=== PATIENT | male | born 1950 | race Caucasian/White ===

== ENCOUNTER → 2024-05-21 | Outpatient (CLI) | payer OTHER | END | disposition home or self-care (01) | LOC: RAD 14:15 | PROVIDERS: ATTEND Surgery | DX: K44.9 Diaphragmatic hernia without obstruction or gangrene (principal); K21.9 Gastro-esophageal reflux disease without esophagitis | CPT/HCPCS: 74220 ==

== ENCOUNTER 2024-09-09 05:47 | Observation (INO) | payer OTHER ==
[2024-09-03 11:48] LABS: BASOPHILS % (AUTO) 0.4 % (0-1); EOSINOPHILS # (AUTO) 0.1 X10'3 (0-0.9); EOSINOPHILS % (AUTO) 1.8 % (0-6); LYMPHOCYTES # (AUTO) 1.1 X10'3 (1.1-4.8); LYMPHOCYTES % (AUTO) 15.1 % (21-51); MEAN CORPUSCULAR HEMOGLOBIN 35.1 PG (27.0-31.0); MEAN CORPUSCULAR HGB CONC 34.9 g/dL (33.0-36.5); MEAN CORPUSCULAR VOLUME 100.6 FL (78-98); MEAN PLATELET VOLUME 9.2 FL (7.4-10.4); MONOCYTES # (AUTO) 0.9 X10'3 (0-0.9); MONOCYTES % (AUTO) 11.6 % (2-12); NEUTROPHILS # (AUTO) 5.3 X10'3 (1.8-7.7); NEUTROPHILS % (AUTO) 71.1 % (42-75); PRE OP HEMATOCRIT 41.5 % (42.0-52.0); PRE OP HEMOGLOBIN 14.5 g/dL (14.0-17.9); PRE OP PLATELET COUNT 132 X10'3 (140-440); PRE OP WHITE BLOOD COUNT 7.5 10'3 (4.8-10.8); RED BLOOD COUNT 4.13 X10'6 (4.70-6.10); RED CELL DISTRIBUTION WIDTH 12.9 % (11.5-14.5)
[2024-09-03 11:58] LABS: ALBUMIN 3.5 G/DL (3.4-5.0); ALKALINE PHOSPHATASE 136 IU/L (46-116); BLOOD UREA NITROGEN 15 MG/DL (7-18); BUN/CREATININE RATIO 12.2 (10.0-20.0); CALCIUM 8.9 MG/DL (8.5-10.1); CHLORIDE 107 MMOL/L (99-107); CREATININE 1.23 MG/DL (0.60-1.10); PRE OP ALT 31 U/L (30-65); PRE OP ANION GAP 8 (8-16); PRE OP AST 22 U/L (10-37); PRE OP BILIRUB, TOTAL 0.4 MG/DL (0.0-1.0); PRE OP GLUCOSE 101 MG/DL (70-104); PRE OP POTASSIUM 4.5 MMOL/L (3.4-5.1); PRE OP SODIUM 141 MMOL/L (135-145); TOTAL CARBON DIOXIDE 26.3 MMOL/L (24-32); TOTAL PROTEIN 6.9 G/DL (6.4-8.2); eGFR 57 ML/MIN
[2024-09-09] VITALS (45 sets, daily range): BP systolic 102–159; BP diastolic 68–104; PULSE 75–97; RESP 12–26; TEMP 97.4–98.3; O2SAT 91–99
[~2024-09-09] VITALS: Ht 174 cm; Wt 85.5 kg
[~2024-09-09 05:47] MED LIST: ASPI-1071 PO; ATOR40TA72 PO; COQ10; DICLOFENAC; FAMO10TA41 PO; GLUCOSAMINE/MSM; LORA10TA7 PO; MATURE MVI; PANT-47 PO; VITAMIN C; VITAMIN D; [UNRECOGNIZED DRUG - OTHER]
[2024-09-09] MEDS: famotidine 20mg tablet PO ONE (06:28)
[2024-09-09] MEDS: ringers solution, lacted 1,000 ML IV SCH ×2 (06:29→09:45)
[2024-09-09] MEDS: ceFAZolin 2gm in dextrose, iso 50 ML IV ONE (06:29)
[2024-09-09] MEDS ORDERED: LIDOcaine 1% (10mg/ml)w/preservative inj. 20ml MDV ONE ×2 (06:41→07:35)
[2024-09-09] MEDS ORDERED: BUPIVAcaine 2.5mg/ml inj 50ml vial (contains preservative) ONE (06:42)
[2024-09-09] MEDS ORDERED: fentaNYL /PF 50mcg/ml 5ml ampule ONE (07:51)
[2024-09-09] MEDS ORDERED: midazolam 1 mg/ML 2ml injection ONE (07:51)
[2024-09-09] MEDS ORDERED: sevoflurane 250ml liquid IH ONE (07:52)
[2024-09-09] MEDS ORDERED: LIDOcaine 2% (20mg/ml) 5ml vial ONE (08:13)
[2024-09-09] MEDS ORDERED: rocuronium 10mg/ml inj IV ONE (08:13)
[2024-09-09] MEDS ORDERED: propofol inj 20 ML IV ONE (08:13)
[2024-09-09] MEDS ORDERED: dexamethasone sod phosphate 4mg/ml inj. ONE (08:47)
[2024-09-09] MEDS ORDERED: ondansetron/PF 4mg/2ml inj ONE (08:47)
[2024-09-09] MEDS ORDERED: enalaprilat dihydrate 2.5mg/2ml vial IV PRN (09:45)
[2024-09-09] MEDS ORDERED: proCHLORperazine 10 MG/2 ml inj IV PRN (09:45)
[2024-09-09] MEDS ORDERED: morphine 4 MG/ML inj SYRINge IV PRN (09:45)
[2024-09-09] MEDS ORDERED: morphine 2 MG/ML inj. syringe IV PRN (09:45)
[2024-09-09] MEDS ORDERED: ondansetron/PF 4mg/2ml inj IV PRN ×2 (09:45→10:00)
[2024-09-09] MEDS ORDERED: labetalol 20mg/4ml (5mg/ml) syringe IV PRN (09:45)
[2024-09-09] MEDS ORDERED: meperidine/PF 25mg/ml syringe IV PRN ×2 (09:45)
[2024-09-09] MEDS: HYDROmorph/NS 0.2 mg/ml PCA 100 ML IV SCH (10:00)
[2024-09-09] MEDS ORDERED: naloxone 0.4 mg/ml inj IV PRN (10:00)
[2024-09-09] MEDS: meperidine/PF 25mg/ml syringe IV PRN (10:50)
[2024-09-09] MEDS ORDERED: albuterol 2.5 MG/3 ML nebule NEB SCH (11:00)
[2024-09-09] MEDS: normal saline 1000ml 1,000 ML IV SCH (19:00)
[2024-09-09] MEDS ORDERED: HYDROmorphone inj. 0.5 MG/0.5 ML DISP.SYRIN IV PRN (20:00)
[2024-09-09] MEDS: atorvastatin 20mg tablet PO SCH (20:34)
[2024-09-09] MEDS: potassium CL 20mEq in D5-1/2NS 1,000 ML IV SCH (20:34)
[2024-09-09] MEDS: oxyCODONE/APAP 5-325mg tablet PO PRN (20:35)
[2024-09-09] MEDS: heparin, porcine 5000 units/ml vial SQ SCH (20:40)
[2024-09-10 02:00] VITALS: BP 138/73; PULSE 87; RESP 16; TEMP 97.8; O2SAT 95
[2024-09-10 06:54] VITALS: BP 137/78; PULSE 56; RESP 18; TEMP 97.6; O2SAT 94
[2024-09-10 07:40] VITALS: RESP 18; O2SAT 94
[2024-09-10] MEDS: loratadine 10mg tablet PO SCH (08:31)
[2024-09-10] MEDS: aspirin 81mg, enteric-coated 1 TAB TABLET.DR PO SCH (08:33)
[2024-09-10 10:35] VITALS: BP 137/75; PULSE 80; RESP 18; TEMP 97.9; O2SAT 95
[2024-09-10] MEDS ORDERED: PER5325T PO (14:58)
[2024-09-10 15:48] VITALS: RESP 18
== END 2024-09-10 16:25 | disposition home or self-care (01) ==
LOC: PAS 05:47 → PAS IN 10:03 → UNDOADMOB 10:03 → PAS IN 10:05 → UNDOADMOB 10:05 → PAS IN 16:55 → ORTHO 4S 16:55
PROVIDERS: ADMIT Surgery; ATTEND Surgery
DX: K44.9 Diaphragmatic hernia without obstruction or gangrene (principal); Z79.899 Other long term (current) drug therapy
CPT/HCPCS: 36415; 43282; 71045; 80053; 82948; 85025; 87081; 93005; 96372; 96374; C1781; G0378; J0131; J0690; J1100; J1644; J2003; J2175; J2250; J2405; J2704; J2710; J3010; J3480; J3490; J7120; S2900; A4615; A4618